=== PATIENT | female | born 1975 | race Caucasian/White ===

== ENCOUNTER 2020-10-05 11:22 | Emergency (ER) | payer SELFPAY ==
[~2020-10-05] VITALS: Ht 175.3 cm; Wt 63.5 kg
[2020-10-05 11:35] VITALS: Ht 175.3 cm; Wt 63.5 kg
[2020-10-05 12:44] LABS: UA SPECIFIC GRAVITY <=1.005 (1.005-1.035); microscopic required? YES; urine erythrocyte NEGATIVE (NEGATIVE)
[2020-10-05] MEDS ORDERED: FLA500 PO (13:10)
[2020-10-05] MEDS ORDERED: METROGEL0.751 VG (13:36)
[2020-10-05 13:45] VITALS: BP 104/56
== END 2020-10-05 13:45 | disposition home or self-care (01) ==
LOC: ED 11:22
PROVIDERS: Emergency Medicine
DX: N76.0 Acute vaginitis (principal)
CPT/HCPCS: 87491; 87591